=== PATIENT | male | born 1960 | race Caucasian/White ===

== ENCOUNTER 2020-10-16 09:42 | Inpatient (IN) | payer OTHER ==
[~2020-10-16] VITALS: Ht 188 cm; Wt 85.6 kg
[2020-10-16 09:42] VITALS: BP 166/112
[2020-10-16 10:21] LABS: ABSOLUTE NEUTROPHILS 5.8 thou/uL (1.4-8.2); BASOPHILS 0.6 % (0.0-2.0); EOSINOPHILS 2.7 % (0.0-3.0); HEMATOCRIT 40.3 % (42.0-52.0); HEMOGLOBIN 13.9 gm/dL (14.0-18.0); LYMPHOCYTES 17.2 % (24.0-44.0); MCH 30.3 pg (26.0-34.0); MCHC 34.6 g/dL (28.0-37.0); MCV 87.6 fL (80.0-100.0); MONOCYTES 10.7 % (1.0-8.0); PLATELET COUNT 401 thou/uL (150-400); POLYS 68.8 % (36.0-66.0); RDW 14.9 % (10.5-14.5); WBC 8.4 thou/uL (4.0-11.0)
[2020-10-16 10:25] LABS: ANION GAP 12 mmol/L (7-16); BUN 41 mg/dL (7-18); CALCIUM 8.6 mg/dL (8.5-10.1); CHLORIDE 104 mmol/L (98-107); CO2 25 mmol/L (21-32); GLUCOSE 104 mg/dL (74-106); POTASSIUM 4.3 mmol/L (3.5-5.1); SODIUM 141 mmol/L (136-145)
[2020-10-16] MEDS ORDERED: VERAPAMIL SR 1120 MG PO (10:31)
[2020-10-16 10:35] LABS: ALBUMIN 3.6 g/dL (3.4-5.0); SGOT 14 U/L (15-37); SGPT 22 U/L (16-63); TOTAL BILIRUBIN 0.4 mg/dL (0.2-1.0); TOTAL PROTEIN 7.5 g/dL (6.4-8.2); TROPONIN-I <0.06 ng/mL (<0.06)
[2020-10-16] MEDS ORDERED: PRINIVIL20 MG PO (11:37)
--- NOTE | 2020-10-16 12:25 | EKG ---
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: SORAIDA : 1960 Requested By: Bhargavi Roberts Order Number: [id number] MD: Mario Carrasco Measurements Intervals [place] Rate: 81 P: 25 ND: 204 QRS: -35 QRSD: 116 T: 121 QT: 406 QTc: 472 Interpretive Statements Sinus rhythm T wave abnormality, consider lateral ischemia Baseline wander in lead(s) II,III,aVF No previous ECG available for comparison Electronically Signed On 10-16-2020 12:25:04 CDT by Mario Carrasco [email or web address] <ELECTRONICALLY SIGNED> By: Mario Carrasco MD, [facility] 10/16/20 1225 0953 0953 Mario Carrasco MD, FACC /EPI
[2020-10-16 16:28] VITALS: BP 139/80
[2020-10-16 16:30] VITALS: BP 139/80
[2020-10-16 16:42] LABS: CHOLESTEROL 175 mg/dL (<200); HDL CHOLESTEROL 45 mg/dL (>40); LDL CHOLESTEROL 98 mg/dL (<100); TC:HDL 3.9 Ratio (Not establshd); TRIGLYCERIDE 161 mg/dL (<150); VLDL 32 mg/dL (<40)
[2020-10-16 17:09] VITALS: BP 146/102
[2020-10-16 19:26] VITALS: BP 147/95
--- NOTE | 2020-10-16 21:11 | NUR ---
UPON INITIAL ASSESSMENT PATIENT BECAME TEARFUL STATING TO NURSE THAT LIFE HAS BEEN "TOUGH" LATELY DUE TO THE RECENT LOSS OF HIS SON AND OTHER FACTORS. PATIENT STATES THESE THINGS MAY HAVE PLAYED A PART IN HIS RECENT HEALTH CONCERNS, AND HE IS "HAVING A TOUGH TIME DEALING" WITH THESE FACTORS. [facility]ON[facility]ATOR CONTACTED WITH ORDERS RECEIVED FOR ANXIETY MEDICATION AND CONSULT FOR PSYCHE.
[2020-10-16 23:42] VITALS: BP 142/81
[2020-10-17] VITALS (11 sets, daily range): BP systolic 137–165; BP diastolic 89–105
[2020-10-17 07:27] LABS: ALBUMIN 3.1 g/dL (3.4-5.0); CALCIUM 8.1 mg/dL (8.5-10.1); CREATININE 3.2 mg/dL (0.7-1.3); PHOSPHORUS 4.7 mg/dL (2.6-4.7); POTASSIUM 4.7 mmol/L (3.5-5.1)
--- NOTE | 2020-10-17 11:55 | 2DMMODE ---
[facility] [place] [address] 2 D/M-MODE ECHOCARDIOGRAM Name: SARAH COUCH Room #: 207-P ADM IN M.R.#: [id number] Admission: 10/16/20 Attend Phys: Fransisco Quigley MD Discharge: Date of : 56 Report #: [id number] THIS REPORT FOR: cc: ELIZABETH - Magaly family physician/PCP ELIZABETH - Magaly family physician/PCP True Lazo MD [facility] ~ APPROVED REPORT Study performed: 10/17/2020 10:17:03 EXAM: Comprehensive 2D, Doppler, and color-flow Echocardiogram Patient Location: Bedside Room #: 207 Status: routine BSA: 2.12 HR: 75 bpm BP: 137/101 mmHg Rhythm: NSR Other Information Study Quality: Good Indications Congestive Heart Failure Dyspnea Chest Pain Echo Enhancing Agent Indication: Rule out thrombus Agent(s) / Amount(s) Used: Optison 5 cc 2D Dimensions RVDd: 36.77 mm IVSd: 9.48 (7-11mm) LVOT Diam: 23.66 (18-24mm) LVDd: 64.50 mm PWd: 9.03 (7-11mm) Ascending Ao: 37.67 (22-36mm) LVDs: 60.47 (25-40mm) Left Atrium: 44.35 (27-40mm) Aortic Root: 38.32 mm IVC: 24.00 mm Volumes Left Atrial Volume (Systole) Single Plane 4CH: 62.30 mL Single Plane 2CH: 77.63 mL LA ESV Index: 35.00 mL/m2 [facility] [place] [address] 2 D/M-MODE ECHOCARDIOGRAM Name: KHOASARAH Monique Room #: 207-P ADM IN .R.#: [id number] Admission: 10/16/20 Attend Phys: Fransisco Quigley MD Discharge: Date of : 56 Report #: [id number] Aortic Valve AoV Peak Ulises.: 0.99 m/s AO Peak Gr.: 3.89 mmHg LVOT Max P.70 mmHg LVOT Max V: 0.82 m/s TORIBIO Vmax: 3.66 cm2 Mitral Valve E/A Ratio: 0.8 MV Decel. Time: 247.93 ms MV E Max Ulises.: 0.80 m/s MV A Ulises.: 1.01 m/s MV PHT: 71.90 ms IVRT: 129.18 ms Pulmonary Valve PV Peak Ulises.: 0.79 m/s PV Peak Gr.: 2.51 mmHg Pulmonary Vein P Vein S: 0.49 m/s P Vein A: 0.25 m/s P Vein D: 0.39 m/s P Vein A Dur.: 92.3 msec P Vein S/D Ratio: 1.26 Tricuspid Valve TR Peak Ulises.: 2.46 m/s TR Peak Gr.: 24.16 mmHg PA Pressure: 34.00 mmHg Left Ventricle Left ventricle is dilated. There is global hypokinesis of the left ventricle. There is normal left ventricular wall thickness. Left ventricular ejection fraction is moderate to severely decreased. No left ventricular thrombus noted. LVEF is 25-30%. Grade I - abnormal relaxation pattern. Right Ventricle The right ventricle is normal size. The right ventricular systolic function is normal. Atria Left atrium is dilated. Right atrium is at the upper limits of normal. Aortic Valve The aortic valve is normal in structure. No aortic regurgitation is present. There is no aortic valvular stenosis. [facility] [address] [place] [address] 2 D/M-MODE ECHOCARDIOGRAM Name: SARAH COUCH Room #: 207-P [facility] IN .R.#: [id number] Admission: 10/16/20 Attend Phys: Fransisco Quigley MD Discharge: Date of : 56 Report #: [id number] Mitral Valve The mitral valve is normal in structure. Trace mitral regurgitation. No evidence of mitral valve stenosis. Tricuspid Valve The tricuspid valve is normal in structure. There is trace tricuspid regurgitation. Estimated PAP 34 mmHg. There is mild pulmonary hypertension. Pulmonic Valve The pulmonary valve is normal in structure. There is no pulmonic valvular regurgitation. Great Vessels The aortic root is normal in size. IVC is dilated and collapses <50% with inspiration. Pericardium There is no pericardial effusion. <Conclusion> Normal left ventricular size/wall thickness Global hypokinesis ejection fraction 25% worse in the anterior wall Grade 1 diastolic dysfunction Normal right ventricle size/function Mild left atrial enlargement Color-flow Doppler study was performed of the aortic/mitral/tricuspid/pulmonary valve Normal aortic valve structure and function Trace mitral valve insufficiency Trace tricuspid valve insufficiency Pulmonary systolic pressure estimated 34 mmHg No pericardial effusion Normal aortic root size. <ELECTRONICALLY SIGNED> By: True Lazo MD, FACC 10/17/20 1154 1154 1154 True Lazo MD, FACC /INF
--- NOTE | 2020-10-17 15:50 | NUR ---
ASSESSMENT: CM REVIEWED CHART AND MET WITH PT. PT IS ALERT AND ORIENTED X4. PT WAS ADMITTED DUE TO DYSPNA/CHEST PAIN. PT REPORTS THAT HE LIVES IN A HOUSE WITH HIS . PT REPORTS THAT HE HAS NO STEPS TO ENTER OR ONCE INSIDE. PT REPORTS HE HAS NO DME OR THE NEED FOR IT. PT IS SHOWING PATIENT PAY AND HE REPORTS THIS IS CORRECT. PT REPORTS THAT HE DOES HAVE A PCP AND JUST GOT ESTABLISHED WITH A PHYSICIAN AT [facility] BUT CANNOT RECALL HER NAME. CM DISCUSSED ROLE. PT DOES NOT ANTICIPATE HAVING AND NEEDS FROM CM AT DISCHARGE. CARDIOLOGY IS FOLLOWING PATIENT.
--- NOTE | 2020-10-17 17:14 | NUR ---
PT CARE ASSUMED AT 0700. ASSESSMENTS CHARTED. MEDICATIONS CHARTED. RAC IV. SINUS RHYTHM. URINAL/TOILET. UP AD BELL. PT EXPERIENCED ANXIETY AND DR CROSS ORDERED XANAX TID PRN.
[2020-10-18 00:30] VITALS: BP 143/91
--- NOTE | 2020-10-18 00:47 | NUR ---
0030 COMPLAINTS OF PRADHAN, HEARTBURN AND ANXIOUS, WOKE UP FROM NIGHTMARE. BP 143/91. XANAX, TYLENOL, CHUATHBALUK SODA AND CRACKERS GIVEN. LISTENED TO PATIENT. RESTING BACK WITH EYES CLOSED.
--- NOTE | 2020-10-18 03:41 | NUR ---
SLEPT PART OF SHIFT. UP AD BELL IN ROOM WITH STEADY GAIT. DENIES FEELING OF CHEST PAIN, DIZZINESS OR HEADACHE. NO FURTHER COMPLAINTS OF NIGHTMARES. WORKING ON GOALS AND PLAN OF CARE FOR NOC. CONTINUE TO ASSES CLOSELY.
[2020-10-18 04:12] VITALS: BP 153/104
[2020-10-18 04:53] LABS: ALBUMIN 2.9 g/dL (3.4-5.0); CALCIUM 7.6 mg/dL (8.5-10.1); CREATININE 2.8 mg/dL (0.7-1.3); PHOSPHORUS 3.8 mg/dL (2.5-4.9); POTASSIUM 4.3 mmol/L (3.5-5.1)
[2020-10-18 06:01] VITALS: BP 155/90
[2020-10-18 08:00] VITALS: BP 178/124
[2020-10-18 12:15] VITALS: BP 135/64; BP 163/102
[2020-10-18] MEDS ORDERED: CARVEDILOL12.5 MG PO (13:38)
[2020-10-18] MEDS ORDERED: ZOLOFT 50 MG TA50 MG PO (13:38)
[2020-10-18] MEDS ORDERED: HYDRALAZINE 2525 MG PO (13:38)
[2020-10-18] MEDS ORDERED: NICOTINE1 EAC2 TRANSDERM (13:38)
[2020-10-18] MEDS ORDERED: ACETAMINOPHEN325 M1 PO (13:38)
[2020-10-18] MEDS ORDERED: ALPRAZOLAM 0.0.25 M1 PO (13:38)
[2020-10-18] MEDS ORDERED: AMLODIPINE BESY10 MG PO (13:38)
[2020-10-18 13:42] VITALS: BP 146/94
== END 2020-10-18 13:56 | disposition home or self-care (01) | DRG 682 ==
LOC: ER 09:42 → EROBS 13:44 → 2N 17:25
PROVIDERS: Emergency Medicine; Internal Medicine Nephrology; Nurse Practitioner Adult Health; ADMIT Hospitalist; ATTEND Hospitalist
DX: N17.0 Acute kidney failure with tubular necrosis (principal); G93.41 Metabolic encephalopathy; I42.9 Cardiomyopathy, unspecified; K21.9 Gastro-esophageal reflux disease without esophagitis; F17.210 Nicotine dependence, cigarettes, uncomplicated; R07.89 Other chest pain; N18.9 Chronic kidney disease, unspecified; I12.9 Hypertensive chronic kidney disease with stage 1 through stage 4 chronic kidney disease, or unspecified chronic kidney disease; F43.21 Adjustment disorder with depressed mood; E78.5 Hyperlipidemia, unspecified; R53.81 Other malaise; I16.0 Hypertensive urgency; Z71.6 Tobacco abuse counseling; Z79.1 Long term (current) use of non-steroidal anti-inflammatories (NSAID); F41.9 Anxiety disorder, unspecified
CPT/HCPCS: 10081

== ENCOUNTER 2020-11-04 14:25 | Emergency (ER) | payer OTHER ==
[~2020-11-04] VITALS: Ht 185.4 cm; Wt 91.2 kg
[~2020-11-04 14:25] MED LIST: ACETAMINOPHEN325 M1 PO; ALPRAZOLAM 0.0.25 M1 PO; AMLODIPINE BESY10 MG PO; CARVEDILOL12.5 MG PO; HYDRALAZINE 2525 MG PO; NICOTINE1 EAC2 TRANSDERM; PRINIVIL20 MG PO; VERAPAMIL SR 1120 MG PO; ZOLOFT 50 MG TA50 MG PO
[2020-11-04 14:43] LABS: URINE BILIRUBIN NEGATIVE (Negative); URINE BLOOD TRACE (Negative); URINE CLARITY CLEAR; URINE COLOR YELLOW; URINE GLUCOSE-RANDOM* NEGATIVE (Negative); URINE KETONES NEGATIVE (Negative); URINE LEUKOCYTES-REFLEX NEGATIVE (Negative); URINE NITRITE-REFLEX NEGATIVE (Negative); URINE PROTEIN (DIPSTICK) 2+ (Negative); URINE SPECIFIC GRAVITY 1.025 (1.005-1.035); URINE UROBILINOGEN 0.2 E.U./dl (0.2-1.0)
[2020-11-04 14:55] LABS: BACTERIA-REFLEX None Seen /HPF (None Seen); CASTS None Seen /LPF (None Seen); CRYSTALS None Seen /LPF (None Seen); SQUAMOUS None Seen /LPF (0-3); URINE RBC 1-2 Rare /HPF (NONE SEEN); URINE WBC-REFLEX 0-5 Rare /HPF (0-5)
--- NOTE | 2020-11-04 14:56 | EKG ---
[address] [place] [address] ELECTROCARDIOGRAM REPORT Name: SARAH COUCH Room #: 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: alexander : 1960 Requested By: Franck Jeronimo Order Number: [id number] MD: True Lazo Measurements Intervals [place] Rate: 72 P: 15 NM: 212 QRS: -17 QRSD: 124 T: 115 QT: 418 QTc: 458 Interpretive Statements Sinus rhythm Borderline prolonged NM interval Left atrial enlargement Nonspecific intraventricular conduction delay Abnormal T, consider ischemia, lateral leads Compared to ECG 10/16/2020 09:53:54 Atrial abnormality now present Intraventricular conduction delay now present T-wave abnormality still present Possible ischemia still present Electronically Signed On 11-04-2020 14:56:11 CDT by True Lazo [email or web address] <ELECTRONICALLY SIGNED> By: True Lazo MD, [facility] 11/04/20 1456 1449 1449 True Lazo MD, [facility] /EPI
[2020-11-04 15:19] LABS: ABSOLUTE NEUTROPHILS 5.4 thou/uL (1.4-8.2); BASOPHILS 1.1 % (0.0-2.0); EOSINOPHILS 2.6 % (0.0-3.0); HEMATOCRIT 36.5 % (42.0-52.0); HEMOGLOBIN 12.4 gm/dL (14.0-18.0); LYMPHOCYTES 17.3 % (24.0-44.0); MCH 29.8 pg (26.0-34.0); MCV 87.6 fL (80.0-100.0); MONOCYTES 12.8 % (1.0-8.0); PLATELET COUNT 326 thou/uL (150-400); POLYS 66.2 % (36.0-66.0); RBC 4.17 mil/uL (4.50-6.00); WBC 8.2 thou/uL (4.0-11.0)
[2020-11-04 15:33] LABS: ANION GAP 10 mmol/L (7-16); BUN 36 mg/dL (7-18); CALCIUM 8.6 mg/dL (8.5-10.1); CHLORIDE 107 mmol/L (98-107); CO2 25 mmol/L (21-32); CREATININE 2.9 mg/dL (0.7-1.3); GLUCOSE 115 mg/dL (74-106); SODIUM 142 mmol/L (136-145)
[2020-11-04 15:44] LABS: ALBUMIN 3.6 g/dL (3.4-5.0); AMYLASE 101 U/L (25-115); DIRECT BILIRUBIN < 0.1 mg/dL (<0.1-0.2); LIPASE 315 U/L (73-393); MAGNESIUM 2.3 mg/dL (1.8-2.4); PHOSPHORUS 3.8 mg/dL (2.6-4.7); SGOT 14 U/L (15-37); SGPT 23 U/L (16-63); TOTAL BILIRUBIN 0.2 mg/dL (0.2-1.0); TOTAL PROTEIN 7.2 g/dL (6.4-8.2); TROPONIN-I <0.06 ng/mL (<0.06)
[2020-11-04 17:50] VITALS: BP 168/106
== END 2020-11-04 17:50 | disposition home or self-care (01) ==
LOC: ER 14:25
PROVIDERS: Emergency Medicine
DX: R60.0 Localized edema (principal); I12.9 Hypertensive chronic kidney disease with stage 1 through stage 4 chronic kidney disease, or unspecified chronic kidney disease; N18.9 Chronic kidney disease, unspecified; K21.9 Gastro-esophageal reflux disease without esophagitis; E66.9 Obesity, unspecified; M17.11 Unilateral primary osteoarthritis, right knee; F17.210 Nicotine dependence, cigarettes, uncomplicated; Z68.26 Body mass index [BMI] 26.0-26.9, adult; Z79.899 Other long term (current) drug therapy

== ENCOUNTER 2020-11-16 12:42 | Emergency (ER) | payer OTHER ==
[~2020-11-16] VITALS: Ht 188 cm; Wt 93.0 kg
[2020-11-16 14:59] LABS: ABSOLUTE NEUTROPHILS 9.3 thou/uL (1.4-8.2); BASOPHILS 0.7 % (0.0-2.0); EOSINOPHILS 2.2 % (0.0-3.0); HEMATOCRIT 36.1 % (42.0-52.0); HEMOGLOBIN 12.1 gm/dL (14.0-18.0); LYMPHOCYTES 8.2 % (24.0-44.0); MCH 28.9 pg (26.0-34.0); MCHC 33.4 g/dL (28.0-37.0); MCV 86.7 fL (80.0-100.0); MONOCYTES 11.3 % (1.0-8.0); PLATELET COUNT 360 thou/uL (150-400); POLYS 77.6 % (36.0-66.0); RBC 4.17 mil/uL (4.50-6.00); RDW 14.9 % (10.5-14.5)
[2020-11-16 15:03] LABS: CALCIUM 8.5 mg/dL (8.5-10.1); POTASSIUM 4.2 mmol/L (3.5-5.1)
[2020-11-16 15:07] LABS: URIC ACID* 6.3 mg/dL (3.5-7.2)
[2020-11-16] MEDS ORDERED: PREDNISONE 20 M20 M1 PO (17:11)
[2020-11-16] MEDS ORDERED: NORCO5 PO (17:11)
[2020-11-16 17:31] VITALS: BP 169/101
[2020-11-16] MEDS ORDERED: ALPRAZOLAM 0.0.25 M1 PO (17:42)
[2020-11-16] MEDS ORDERED: ZOLOFT 50 MG TA50 MG PO (17:42)
[2020-11-16] MEDS ORDERED: AMLODIPINE BESY10 MG PO (17:42)
== END 2020-11-16 17:44 | disposition home or self-care (01) ==
LOC: ER 12:42
PROVIDERS: Emergency Medicine
DX: M13.171 Monoarthritis, not elsewhere classified, right ankle and foot (principal); F17.210 Nicotine dependence, cigarettes, uncomplicated; Z88.5 Allergy status to narcotic agent; Z79.899 Other long term (current) drug therapy

== ENCOUNTER 2020-12-05 05:38 | Emergency (ER) | payer OTHER ==
[~2020-12-05] VITALS: Ht 188 cm; Wt 93.0 kg
[~2020-12-05 05:38] MED LIST changes: +NORCO5 PO; +PREDNISONE 20 M20 M1 PO
[2020-12-05 06:45] LABS: ABSOLUTE NEUTROPHILS 6.9 thou/uL (1.4-8.2); BASOPHILS 0.8 % (0.0-2.0); EOSINOPHILS 2.6 % (0.0-3.0); HEMATOCRIT 34.6 % (42.0-52.0); HEMOGLOBIN 11.6 gm/dL (14.0-18.0); LYMPHOCYTES 11.3 % (24.0-44.0); MCH 29.3 pg (26.0-34.0); MCHC 33.6 g/dL (28.0-37.0); MCV 87.2 fL (80.0-100.0); PLATELET COUNT 316 thou/uL (150-400); POLYS 71.3 % (36.0-66.0); RBC 3.97 mil/uL (4.50-6.00); RDW 15.1 % (10.5-14.5); WBC 9.7 thou/uL (4.0-11.0)
[2020-12-05 06:49] LABS: ANION GAP 12 mmol/L (7-16); BUN 30 mg/dL (7-18); CALCIUM 8.4 mg/dL (8.5-10.1); CHLORIDE 103 mmol/L (98-107); CO2 25 mmol/L (21-32); CREATININE 2.7 mg/dL (0.7-1.3); GLUCOSE 124 mg/dL (74-106); POTASSIUM 3.7 mmol/L (3.5-5.1); SODIUM 140 mmol/L (136-145)
[2020-12-05 06:59] LABS: ALBUMIN 3.2 g/dL (3.4-5.0); SGOT 14 U/L (15-37); SGPT 23 U/L (16-63); TOTAL BILIRUBIN 0.4 mg/dL (0.2-1.0); TOTAL PROTEIN 6.9 g/dL (6.4-8.2); TROPONIN-I <0.06 ng/mL (<0.06)
--- NOTE | 2020-12-05 07:06 | EKG ---
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: : 1960 Requested By: Xu Gastelum Order Number: [id number] MD: True Lazo Measurements Intervals [place] Rate: 82 P: 10 ID: 206 QRS: -17 QRSD: 123 T: 125 QT: 407 QTc: 476 Interpretive Statements Sinus rhythm Probable left atrial enlargement Nonspecific intraventricular conduction delay Abnrm T, consider ischemia, anterolateral lds Compared to ECG 11/04/2020 14:49:36 T-wave abnormality no longer present Possible ischemia still present Electronically Signed On 12-05-2020 7:06:15 CDT by True Lazo [email or web address] <ELECTRONICALLY SIGNED> By: True Lazo MD, [facility] 12/05/2006 0553 0553 True Lazo MD, [facility] /EPI
[2020-12-05] MEDS ORDERED: NORCO5 PO ×2 (08:17→08:30)
[2020-12-05] MEDS ORDERED: FLEXERIL PO (08:17)
[2020-12-05] MEDS ORDERED: HYDROCODON-ACE1 EAC7 PO (08:33)
[2020-12-05 09:01] VITALS: BP 178/115
== END 2020-12-05 09:01 | disposition home or self-care (01) ==
LOC: ER 05:38
PROVIDERS: Emergency Medicine
DX: M54.2 Cervicalgia (principal); R60.0 Localized edema; I12.9 Hypertensive chronic kidney disease with stage 1 through stage 4 chronic kidney disease, or unspecified chronic kidney disease; N18.9 Chronic kidney disease, unspecified; F17.210 Nicotine dependence, cigarettes, uncomplicated; Z88.5 Allergy status to narcotic agent

== ENCOUNTER 2020-12-14 15:18 | Emergency (ER) | payer OTHER ==
[~2020-12-14] VITALS: Ht 188 cm; Wt 93.0 kg
[~2020-12-14 15:18] MED LIST changes: +FLEXERIL PO; +HYDROCODON-ACE1 EAC7 PO
[2020-12-14 15:41] LABS: HEMATOCRIT 31.7 % (42.0-52.0); HEMOGLOBIN 10.8 gm/dL (14.0-18.0); MCH 29.5 pg (26.0-34.0); MCHC 34.2 g/dL (28.0-37.0); MCV 86.3 fL (80.0-100.0); PLATELET COUNT 410 thou/uL (150-400); RBC 3.67 mil/uL (4.50-6.00); WBC 8.3 thou/uL (4.0-11.0)
[2020-12-14 15:48] LABS: ANION GAP 11 mmol/L (7-16); BUN 30 mg/dL (7-18); CALCIUM 8.3 mg/dL (8.5-10.1); CHLORIDE 106 mmol/L (98-107); CO2 24 mmol/L (21-32); CREATININE 3.2 mg/dL (0.7-1.3); GLUCOSE 116 mg/dL (74-106); SODIUM 141 mmol/L (136-145)
[2020-12-14 15:59] LABS: ALBUMIN 3.1 g/dL (3.4-5.0); LIPASE 178 U/L (73-393); SGOT 14 U/L (15-37); SGPT 24 U/L (16-63); TOTAL BILIRUBIN 0.3 mg/dL (0.2-1.0); TOTAL PROTEIN 6.9 g/dL (6.4-8.2); TROPONIN-I <0.06 ng/mL (<0.06)
[2020-12-14 16:29] LABS: ABSOLUTE NEUTROPHILS 6.1 thou/uL (1.4-8.2); PLATELET ESTIMATE NORMAL
[2020-12-14 19:51] VITALS: BP 151/88
--- NOTE | 2020-12-15 07:09 | EKG ---
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: CARMINA : 1960 Requested By: Maicol Schuster Order Number: [id number] MD: True Lazo Measurements Intervals [place] Rate: 83 P: -5 TN: 207 QRS: -8 QRSD: 126 T: 96 QT: 406 QTc: 477 Interpretive Statements Sinus rhythm Probable left atrial enlargement Nonspecific intraventricular conduction delay Inferior infarct, old Lateral leads are also involved Baseline wander in lead(s) V3 Compared to ECG 12/05/2020 05:53:26 Myocardial infarct finding now present Possible ischemia no longer present Electronically Signed On 12-15-2020 7:09:28 CDT by True Lazo [email or web address] <ELECTRONICALLY SIGNED> By: True Lazo MD, FACC 12/15/20 0709 1535 1535 True Lazo MD, [facility] /EPI
== END 2020-12-14 19:51 | disposition home or self-care (01) ==
LOC: ER 15:18
PROVIDERS: Emergency Medicine
DX: M25.512 Pain in left shoulder (principal); Z20.822 Contact with and (suspected) exposure to COVID-19; R06.00 Dyspnea, unspecified; R22.42 Localized swelling, mass and lump, left lower limb; R22.41 Localized swelling, mass and lump, right lower limb; I12.9 Hypertensive chronic kidney disease with stage 1 through stage 4 chronic kidney disease, or unspecified chronic kidney disease; N18.9 Chronic kidney disease, unspecified; F17.210 Nicotine dependence, cigarettes, uncomplicated; Z88.5 Allergy status to narcotic agent

== ENCOUNTER 2021-03-05 12:58 | Emergency (ER) | payer OTHER ==
[~2021-03-05] VITALS: Ht 188 cm; Wt 86.2 kg
[2021-03-05 13:36] LABS: HEMATOCRIT 35.9 % (42.0-52.0); HEMOGLOBIN 12.4 gm/dL (14.0-18.0); MCHC 34.6 g/dL (28.0-37.0); MCV 83.6 fL (80.0-100.0); PLATELET COUNT 379 thou/uL (150-400); RBC 4.29 mil/uL (4.50-6.00); RDW 16.3 % (10.5-14.5); WBC 12.8 thou/uL (4.0-11.0)
[2021-03-05 13:39] LABS: ANION GAP 8 mmol/L (7-16); BUN 38 mg/dL (7-18); CALCIUM 8.3 mg/dL (8.5-10.1); CHLORIDE 102 mmol/L (98-107); CO2 25 mmol/L (21-32); CREATININE 2.6 mg/dL (0.7-1.3); GLUCOSE 105 mg/dL (74-106); POTASSIUM 4.1 mmol/L (3.5-5.1); SODIUM 135 mmol/L (136-145)
[2021-03-05 13:45] LABS: ALBUMIN 2.6 g/dL (3.4-5.0); SGOT 33 U/L (15-37); SGPT 26 U/L (30-65); TOTAL BILIRUBIN 0.2 mg/dL (0.2-1.0); TOTAL PROTEIN 6.4 g/dL (6.4-8.2)
[2021-03-05 14:36] LABS: URINE BILIRUBIN NEGATIVE (Negative); URINE BLOOD 1+ (Negative); URINE CLARITY CLEAR; URINE COLOR YELLOW; URINE GLUCOSE-RANDOM* NEGATIVE (Negative); URINE KETONES NEGATIVE (Negative); URINE LEUKOCYTES-REFLEX NEGATIVE (Negative); URINE NITRITE-REFLEX NEGATIVE (Negative); URINE PROTEIN (DIPSTICK) 2+ (Negative); URINE SPECIFIC GRAVITY 1.015 (1.005-1.035); URINE UROBILINOGEN 0.2 E.U./dl (0.2-1.0)
[2021-03-05 14:51] LABS: ABSOLUTE NEUTROPHILS 11.1 thou/uL (1.4-8.2); METAMYELOCYTES 1 %
[2021-03-05 16:07] LABS: BACTERIA-REFLEX None Seen /HPF (None Seen); SQUAMOUS 0-3 Few /LPF (0-3); URINE RBC 1-2 Rare /HPF (NONE SEEN); URINE WBC-REFLEX 0-5 Rare /HPF (0-5)
[2021-03-05 16:30] VITALS: BP 175/109
--- NOTE | 2021-03-06 12:37 | EKG ---
[facility] [address] [place] [address] ELECTROCARDIOGRAM REPORT Name: SARAH COUCH Room #: [facility]#: [id number] Admission: 03/05/21 Attend Phys: Discharge: 03/05/21 Date of : 56 Report #: [id number] [facility] ED Test Date: 2021-03-05 Test Time: 13:12:35 Pat Name: SARAH COUCH Department: Room: Gender: Credit Reference Clerk: MICHAEL : 1960 Requested By: Christopher Hernandez Order Number: [id number] MD: Mario Carrasco Measurements Intervals [place] Rate: 101 P: -9 VA: 191 QRS: 256 QRSD: 112 T: 113 QT: 370 QTc: 480 Interpretive Statements Sinus tachycardia Consider right ventricular hypertrophy Inferior infarct, old Lateral leads are also involved Compared to ECG 12/14/2020 15:35:32 Heart rate has increased Electronically Signed On 03-06-2021 12:37:01 CDT by Mario Carrasco [email or web address] <ELECTRONICALLY SIGNED> By: Mario Carrasco MD, [facility] 03/06/21 1237 1312 11 Mario Carrasco MD, [facility] /EPI
== END 2021-03-05 16:30 | disposition left against medical advice (07) ==
LOC: ER 12:58
PROVIDERS: Physician Assistant
DX: U07.1 COVID-19 (principal); I12.9 Hypertensive chronic kidney disease with stage 1 through stage 4 chronic kidney disease, or unspecified chronic kidney disease; N18.9 Chronic kidney disease, unspecified; F17.210 Nicotine dependence, cigarettes, uncomplicated; Z88.5 Allergy status to narcotic agent